=== PATIENT | male | born 1960 | race Caucasian/White ===

== ENCOUNTER 2018-04-21 08:54 | Emergency (ER) | payer OTHER ==
[~2018-04-21] VITALS: Ht 200.7 cm; Wt 172.4 kg
[2018-04-21] MEDS ORDERED: XARELTO10 MG PO (09:04)
[2018-04-21] MEDS ORDERED: SIMVASTATIN20 MG PO (09:04)
[2018-04-21] MEDS ORDERED: COREG6.25 MG PO (09:04)
[2018-04-21] MEDS ORDERED: ASPIRIN325 MG PO (09:05)
== END 2018-04-21 11:00 | disposition home or self-care (01) ==
LOC: ED 08:54
PROC: 093K7ZZ Control Bleeding in Nasal Mucosa and Soft Tissue, Via Natural or Artificial Opening (ICD-10-PCS; principal; 2018-04-21)
DX: R04.0 Epistaxis (principal); I48.91 Unspecified atrial fibrillation; E78.00 Pure hypercholesterolemia, unspecified; Z79.899 Other long term (current) drug therapy; Z79.82 Long term (current) use of aspirin
CPT/HCPCS: 30903; 85025; 85610; 85730; 99283